=== PATIENT | female | born 1990 | race Caucasian/White ===

== ENCOUNTER 2017-01-06 14:30 | Emergency (ER) | payer OTHER ==
--- NOTE | 2017-01-06 15:31 | DIAGNOSTIC IMAGING REPORT ---
PROCEDURE: XR CHEST 2 VIEW INDICATION: ? METALIC FB TECHNIQUE: PA and lateral views. COMPARISON: None. FINDINGS: Lungs are clear. Heart and mediastinum are normal. Thorax is normal. IMPRESSION: 1. Negative chest.
--- NOTE | 2017-01-06 15:49 | ED NURSING NOTES ---
Clinical Report - Nurses [facility] [address] [place] [address] 01/06/2017 14:32 Patient: ISSA BALTAZAR TRIAGE Triage time 14:42 Jan 06 2017. Chief Complaint: FORIEGN BODY SENSATION IN THROAT and (pt reports eating a potpie and "felt something in my throat" pt reports part of a steak knife tip broken offspeaks full clear sentences, clears oral secretions.). Alert. No acute distress. (speaks full clear sentences, clears oral secretions). SEPSIS SCREEN: Sepsis Screen. Negative (no infection suspected/documented). --14:45 Lele Loredo R.N. 14:41 01/06/17. BP: 139/81. HR: 80. RR: 18. O2 saturation: 98%. Temp: 98 F. Pain level now: 0/10. --14:45 Lele Loredo R.N. Weight: 75.7 kg stated. Height/Length: 66 inches Per Patient. BMI: 26.9. --14:42 Lele Loredo R.N. Medications None. --14:42 Lele Loredo R.N. Allergies None. --14:42 Lele Loredo R.N. History Arrived by private vehicle. Historian: patient and family. Accompanied by family. This started last night. Treatment RIDE MECHANIC: None. PAST MEDICAL HX: Immunizations: up-to-date. Last normal menstrual period- now. SOCIAL HX: Smoker- current status unknown (cigarette). No alcohol use or drug use. No infectious disease exposure. ABUSE ASSESSMENT: No report of abuse. SELF HARM ASSESSMENT: A self harm assessment was performed. The patient answered "no" to the question "Do you have thoughts of harming or killing yourself?". FALL RISK ASSESSMENT: Fall risk assessment completed. No fall risk identified. NUTRITIONAL RISK ASSESSMENT: The nutritional risk assessment revealed no deficiencies. FUNCTIONAL ASSESSMENT: Functional assessment: no impairments noted. LEARNING NEEDS ASSESSMENT: The learning needs assessment revealed no barriers. SKIN INTEGRITY ASSESSMENT: Skin integrity risk assessment completed. No skin integrity risk identified. --14:45 Lele Loredo R.N. PROBLEMS: UTI - Urinary Tract Infection. Contusion. Tetanus Status. LNMP - Last Normal Menstrual Period. --14:42 Lele Loredo R.N. ADDITIONAL SURGERIES: . --14:42 Lele Loredo R.N. Interventions ID band on patient. To treatment room. --14:45 Lele Loredo R.N. PHYSICAL ASSESSMENT Ambulatory to room. Patient gowned. GENERAL / NEURO / PSYCH: Alert. Oriented X 4. Appears in no acute distress. Appears anxious. HEENT: Voice within normal limits. Mouth within normal limits upon inspection. Mucous membranes are pink. RESPIRATORY: Respirations not labored. SKIN: Skin is warm and dry. Normal skin turgor. --14:45 Lele Loredo R.N. NURSING PROGRESS NOTES Pulse oximeter placed on patient. Patient gowned. Reassurance given. Patient identifiers checked. Call light placed in reach. Side rails up x 1. Bed placed in lowest position. Brakes of bed on. Patient ready for evaluation- chart flagged. Patient waiting for evaluation. --14:46 Lele Loredo R.N. DISPOSITION / DISCHARGE No learning barriers present. Discharge instructions provided and reviewed with the patient and spouse. Patient verbalized understanding. Written instructions provided in Kazakh. The patient was discharged by the physician. She was discharged home and accompanied by spouse. She left the Emergency Department ambulatory. ( pt dc home ambulatory, speaking full, clear sentences, clearing oral secretions, pain free, pt verbalized dc/ instructions.). --15:56 Lele Loredo R.N. 15:54 01/06/17. BP: 129/72. HR: 70. RR: 17. O2 saturation: 100%. Temp: deferred. Pain level now: 0/10. --15:56 Lele Loredo R.N. Departure time: 1553. --15:56 Lele Loredo R.N. Locked/Released at 01/06/2017 20:27 by Lele Loredo R.N.
--- NOTE | 2017-01-06 15:49 | ED CLINICAL REPORT ---
Clinical Report - Physicians/Mid Levels [facility] [address] [place] [address] 01/06/2017 14:32 Patient: ISSA VIGIL Time Seen: 14:46. Arrived- By private vehicle. Historian- patient. HISTORY OF PRESENT ILLNESS Chief Complaint: "I MAY HAVE A FOREIGN BODY IN MY THROAT". This started yesterday Ms Vigil was poking a meat pie with a knife. She noted a ball like sensation in her throat. She then noted the tip missing on the knife blade. She is concerned that she has a throat FB. Speech is normal, swallowing is near normal. and is still present (almost gone). It was gradual in onset. Pain described as mild. No sore throat, mouth sores, nasal discharge or congestion or toothache. No swollen jaw or face, jaw pain or facial pain. Similar symptoms previously: None. REVIEW OF SYSTEMS No fever, eye discomfort, cough, difficulty breathing or chest pain. No abdominal pain. PAST HISTORY PCP: Sigridr Illness: None Hosp: CB Ops: . SOCIAL HISTORY Current every day smoker. ADDITIONAL NOTES The nursing notes have been reviewed. PHYSICAL EXAM Vital Signs: 01/06/2017 15:54 BP: 129/72. HR: 70. RR: 17. O2 saturation: 100%. Pain level now: 0/10. 01/06/2017 14:42 BP: 139/81. HR: 80. RR: 18. O2 saturation: 98%. Temp: 98 F. Pain level now: 0/10. Appearance: Alert. No acute distress. Eyes: Conjunctivae and eyelids normal. ENT: Pharynx normal. Lips normal. Uvula midline. Neck: Normal inspection. Trachea midline. No adenopathy. Thyroid normal. Neck supple. (Normal thyroid cartilage crepitance with movemnet). Respiratory: No respiratory distress. Breath sounds normal. Abdomen: Soft. No organomegaly. LABS, X-RAYS, AND EKG Chest X-ray: No acute disease. The X-rays were interpreted by the radiologist and contemporaneously by me. PROGRESS AND PROCEDURES Course of Care: Pt has a normal speaking voice and swallow. CXR negative for metalic FB. Most likely cricopharyngeus muscle spasm. Disposition: Discharged. Condition: stable. CLINICAL IMPRESSION SENSATION OF ESOPHAGEAL FOREIGN BODY - NO FOREIGN BODY PRESENT. INSTRUCTIONS (YOUR X-RAY IS NEGATIVE. I EXPECT YOU WILL FEEL BETTER FAIRLY SOON IMMEDIATE RECHECK FOR PROBLEMS SWALLOWING, ABDOMINAL PAIN OR VOMITING.). Follow-up: Follow up with your doctor in six days if not well. Understanding of the discharge instructions verbalized by patient and family. (Electronically signed by Jagdish Encarnacion MD 01/09/2017 12:21)
--- NOTE | 2017-01-06 15:49 | ED CLINICAL REPORT ---
Clinical Report - Physicians/Mid Levels [facility] [address] [place] [address] 01/06/2017 14:32 Patient: ISSA VIGIL Time Seen: 14:46. Arrived- By private vehicle. Historian- patient. HISTORY OF PRESENT ILLNESS Chief Complaint: "I MAY HAVE A FOREIGN BODY IN MY THROAT". This started yesterday Ms Vigil was poking a meat pie with a knife. She noted a ball like sensation in her throat. She then noted the tip missing on the knife blade. She is concerned that she has a throat FB. Speech is normal, swallowing is near normal. and is still present (almost gone). It was gradual in onset. Pain described as mild. No sore throat, mouth sores, nasal discharge or congestion or toothache. No swollen jaw or face, jaw pain or facial pain. Similar symptoms previously: None. REVIEW OF SYSTEMS No fever, eye discomfort, cough, difficulty breathing or chest pain. No abdominal pain. PAST HISTORY PCP: Sigridr Illness: None Hosp: CB Ops: . SOCIAL HISTORY Current every day smoker. ADDITIONAL NOTES The nursing notes have been reviewed. PHYSICAL EXAM Vital Signs: 01/06/2017 15:54 BP: 129/72. HR: 70. RR: 17. O2 saturation: 100%. Pain level now: 0/10. 01/06/2017 14:42 BP: 139/81. HR: 80. RR: 18. O2 saturation: 98%. Temp: 98 F. Pain level now: 0/10. Appearance: Alert. No acute distress. Eyes: Conjunctivae and eyelids normal. ENT: Pharynx normal. Lips normal. Uvula midline. Neck: Normal inspection. Trachea midline. No adenopathy. Thyroid normal. Neck supple. (Normal thyroid cartilage crepitance with movemnet). Respiratory: No respiratory distress. Breath sounds normal. Abdomen: Soft. No organomegaly. LABS, X-RAYS, AND EKG Chest X-ray: No acute disease. The X-rays were interpreted by the radiologist and contemporaneously by me. PROGRESS AND PROCEDURES Course of Care: Pt has a normal speaking voice and swallow. CXR negative for metalic FB. Most likely cricopharyngeus muscle spasm. Disposition: Discharged. Condition: stable. CLINICAL IMPRESSION SENSATION OF ESOPHAGEAL FOREIGN BODY - NO FOREIGN BODY PRESENT. INSTRUCTIONS (YOUR X-RAY IS NEGATIVE. I EXPECT YOU WILL FEEL BETTER FAIRLY SOON IMMEDIATE RECHECK FOR PROBLEMS SWALLOWING, ABDOMINAL PAIN OR VOMITING.). Follow-up: Follow up with your doctor in six days if not well. Understanding of the discharge instructions verbalized by patient and family. (Electronically signed by Jagdish Encarnacion MD 01/09/2017 12:21)
--- NOTE | 2017-01-06 15:49 | ED NURSING NOTES ---
Clinical Report - Nurses [facility] [address] [place] [address] 01/06/2017 14:32 Patient: ISSA BALTAZAR TRIAGE Triage time 14:42 Jan 06 2017. Chief Complaint: FORIEGN BODY SENSATION IN THROAT and (pt reports eating a potpie and "felt something in my throat" pt reports part of a steak knife tip broken offspeaks full clear sentences, clears oral secretions.). Alert. No acute distress. (speaks full clear sentences, clears oral secretions). SEPSIS SCREEN: Sepsis Screen. Negative (no infection suspected/documented). --14:45 Lele Loredo R.N. 14:41 01/06/17. BP: 139/81. HR: 80. RR: 18. O2 saturation: 98%. Temp: 98 F. Pain level now: 0/10. --14:45 Lele Loredo R.N. Weight: 75.7 kg stated. Height/Length: 66 inches Per Patient. BMI: 26.9. --14:42 Lele Loredo R.N. Medications None. --14:42 Lele Loredo R.N. Allergies None. --14:42 Lele Loredo R.N. History Arrived by private vehicle. Historian: patient and family. Accompanied by family. This started last night. Treatment LOSS PREVENTION AND SAFETY MANAGER: None. PAST MEDICAL HX: Immunizations: up-to-date. Last normal menstrual period- now. SOCIAL HX: Smoker- current status unknown (cigarette). No alcohol use or drug use. No infectious disease exposure. ABUSE ASSESSMENT: No report of abuse. SELF HARM ASSESSMENT: A self harm assessment was performed. The patient answered "no" to the question "Do you have thoughts of harming or killing yourself?". FALL RISK ASSESSMENT: Fall risk assessment completed. No fall risk identified. NUTRITIONAL RISK ASSESSMENT: The nutritional risk assessment revealed no deficiencies. FUNCTIONAL ASSESSMENT: Functional assessment: no impairments noted. LEARNING NEEDS ASSESSMENT: The learning needs assessment revealed no barriers. SKIN INTEGRITY ASSESSMENT: Skin integrity risk assessment completed. No skin integrity risk identified. --14:45 Lele Loredo R.N. PROBLEMS: UTI - Urinary Tract Infection. Contusion. Tetanus Status. LNMP - Last Normal Menstrual Period. --14:42 Lele Loredo R.N. ADDITIONAL SURGERIES: . --14:42 Lele Loredo R.N. Interventions ID band on patient. To treatment room. --14:45 Lele Loredo R.N. PHYSICAL ASSESSMENT Ambulatory to room. Patient gowned. GENERAL / NEURO / PSYCH: Alert. Oriented X 4. Appears in no acute distress. Appears anxious. HEENT: Voice within normal limits. Mouth within normal limits upon inspection. Mucous membranes are pink. RESPIRATORY: Respirations not labored. SKIN: Skin is warm and dry. Normal skin turgor. --14:45 Lele Loredo R.N. NURSING PROGRESS NOTES Pulse oximeter placed on patient. Patient gowned. Reassurance given. Patient identifiers checked. Call light placed in reach. Side rails up x 1. Bed placed in lowest position. Brakes of bed on. Patient ready for evaluation- chart flagged. Patient waiting for evaluation. --14:46 Lele Loredo R.N. DISPOSITION / DISCHARGE No learning barriers present. Discharge instructions provided and reviewed with the patient and spouse. Patient verbalized understanding. Written instructions provided in Maltese. The patient was discharged by the physician. She was discharged home and accompanied by spouse. She left the Emergency Department ambulatory. ( pt dc home ambulatory, speaking full, clear sentences, clearing oral secretions, pain free, pt verbalized dc/ instructions.). --15:56 Lele Loredo R.N. 15:54 01/06/17. BP: 129/72. HR: 70. RR: 17. O2 saturation: 100%. Temp: deferred. Pain level now: 0/10. --15:56 Lele Loredo R.N. Departure time: 1553. --15:56 Lele Loredo R.N. Locked/Released at 01/06/2017 20:27 by Lele Loredo R.N.
--- NOTE | 2017-01-06 15:49 | ED ORDER SUMMARY ---
..... Patient: ISSA BALTAZAR OrderSheet [facility] VisitID: [id number] [address] [place] [address] 26y, F Registration Date/Time: 01/06/2017 ORDER SHEET Weight: 75.7 kg (stated) Allergies: None GENERAL ORDERS: Chest 2V Urgent (15:16 01/06/2017 Al GUTIERREZ) ([facility] 15:19 Nona Tech1) (20:27 Yee Glover) MEDICATION ORDERS: IV FLUIDS: ORDER SHEET NOTES: [Electronically signed by Lele Loredo R.N. (20:27 01/06/2017)] [Electronically signed by Jagdish Encarnacion MD (12:21 01/09/2017)] [Electronically locked/signed by Lele Loredo R.N. (:01/06/2017)]
--- NOTE | 2017-01-06 15:49 | ED ORDER SUMMARY ---
..... Patient: ISSA BALTAZAR OrderSheet [facility] VisitID: [id number] [address] [place] [address] 26y, F Registration Date/Time: 01/06/2017 ORDER SHEET Weight: 75.7 kg (stated) Allergies: None GENERAL ORDERS: Chest 2V Urgent (15:16 01/06/2017 Al GUTIERREZ) ([facility] 15:19 Nona Tech1) (20:27 Yee Glover) MEDICATION ORDERS: IV FLUIDS: ORDER SHEET NOTES: [Electronically signed by Lele Loredo R.N. (20:27 01/06/2017)] [Electronically signed by Jagdish Encarnacion MD (12:21 01/09/2017)] [Electronically locked/signed by Lele Loredo R.N. (:01/06/2017)]
--- NOTE | 2017-01-09 12:21 | ED MED RECONCILIATION SUMMARY ---
Patient: ISSA BALTAZAR Medication Reconciliation Report [facility] VisitID: [id number] [address] [place] [place] [address] 26y, F Registration Date/Time: 01/06/2017 Weight: 75.7 kg Height/Length: 66 in. BMI: 26.9 ALLERGIES: None The patient's Home Medications are listed below: NONE. The source(s) of the original Home Medication information: Not obtained. The following Medications were given to the patient in the Emergency Department: None. The following Medications were prescribed to the patient: None.
--- NOTE | 2017-01-09 12:21 | ED MAR SUMMARY ---
..... Medication Administration Record Located Within [facility] [address] [place], [place] [id number] Patient: ISSA BALTAZAR Visit ID: [id number] 26y, F Weight: 75.7 kg Height/Length: 66 in BMI: 26.9 ALLERGIES: None
--- NOTE | 2017-01-09 12:21 | ED DISCHARGE INSTRUCTIONS ---
Patient: ISSA BALTAZAR General Instructions [facility] VisitID: [id number] [address] [place] [address] 26y, F Registration Date/Time: 01/06/2017 SENSATION OF ESOPHAGEAL FOREIGN BODY - NO FOREIGN BODY PRESENT. INSTRUCTIONS (YOUR X-RAY IS NEGATIVE. I EXPECT YOU WILL FEEL BETTER FAIRLY SOON IMMEDIATE RECHECK FOR PROBLEMS SWALLOWING, ABDOMINAL PAIN OR VOMITING.). Follow-up: Follow up with your doctor in six days if not well. Understanding of the discharge instructions verbalized by patient and family. (Electronically signed by Jagdish Encarnacion MD 01/09/2017 12:21)
--- NOTE | 2017-01-09 12:21 | ED MAR SUMMARY ---
..... Medication Administration Record [facility] [address] [place], [place] [id number] Patient: ISSA BALTAZAR Visit ID: [id number] 26y, F Weight: 75.7 kg Height/Length: 66 in BMI: 26.9 ALLERGIES: None
--- NOTE | 2017-01-09 12:21 | ED MED RECONCILIATION SUMMARY ---
Patient: ISSA BALTAZAR Medication Reconciliation Report [facility] VisitID: [id number] [address] [place] [address] 26y, F Registration Date/Time: 01/06/2017 Weight: 75.7 kg Height/Length: 66 in. BMI: 26.9 ALLERGIES: None The patient's Home Medications are listed below: NONE. The source(s) of the original Home Medication information: Not obtained. The following Medications were given to the patient in the Emergency Department: None. The following Medications were prescribed to the patient: None.
--- NOTE | 2017-01-09 12:21 | ED DISCHARGE INSTRUCTIONS ---
Patient: ISSA BALTAZAR General Instructions [facility] VisitID: [id number] [address] [place] [address] 26y, F Registration Date/Time: 01/06/2017 SENSATION OF ESOPHAGEAL FOREIGN BODY - NO FOREIGN BODY PRESENT. INSTRUCTIONS (YOUR X-RAY IS NEGATIVE. I EXPECT YOU WILL FEEL BETTER FAIRLY SOON IMMEDIATE RECHECK FOR PROBLEMS SWALLOWING, ABDOMINAL PAIN OR VOMITING.). Follow-up: Follow up with your doctor in six days if not well. Understanding of the discharge instructions verbalized by patient and family. (Electronically signed by Jagdish Encarnacion MD 01/09/2017 12:21)
== END 2017-01-06 15:53 | disposition home or self-care (01) ==
LOC: ED SRH 14:30
DX: R09.89 Other specified symptoms and signs involving the circulatory and respiratory systems (principal); F17.210 Nicotine dependence, cigarettes, uncomplicated